=== PATIENT | female | born 1960 | race Caucasian/White ===

== ENCOUNTER 2024-09-18 15:02 | Outpatient (CLI) | payer OTHER, SELFPAY ==
--- NOTE | 2024-09-18 14:15 | DI.RAD_ITS ---
Exam(s) XR KNEE RT 3V AP,LAT,KIYA EXAM: XR KNEE RT 3V AP,LAT,KIYA CLINICAL HISTORY: RIGHT KNEE PAIN. TECHNIQUE: 2D digital imaging was performed. COMPARISON: No prior knee exams were available for comparison FINDINGS: 3 views No evidence of acute fracture nor obvious joint effusion. There are 2 parallel screws across a healed fracture site in the patella. No remaining fracture line visible in the patella nor elsewhere in the knee joint. Calcifications off the anteromedial aspect most probably related to injury of the prior injury of the medial patellar retinaculum. There is no significant degenerative narrowing of the medial lateral compartments nor of the patellofemoral compartment. Incidentally noted is an eccentric sclerotic bone lesion in the distal femur at the diaphysis-metaphysis junction. 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 IMPRESSION: As above. DATA REPOSITORY: RADIATION DOSE DELIVERED:
== END 2024-09-18 15:03 | disposition home or self-care (01) ==
LOC: DIORS 15:03
PROVIDERS: Visit Provider Student in an Organized Health Care Education/Training Program
DX: M25.561 Pain in right knee (principal)
CPT/HCPCS: 73562